=== PATIENT | male | born 1995 | race Caucasian/White ===

== ENCOUNTER 2017-02-17 09:22 | Emergency (ER) | payer SELFPAY ==
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
[2017-02-17] MEDS ORDERED: Ondansetron 4 MG/2 ML SDV IVPUSH ONE (09:43)
[2017-02-17] MEDS ORDERED: Sodium Chloride 0.9% 1,000 ML IV ONE (09:43)
[2017-02-17] MEDS ORDERED: Ketorolac 30 MG/ML SDV IVPUSH ONE (09:44)
[2017-02-17 10:25] LABS: CHLORIDE,CL 105 mmol/L (98-110); SODIUM,NA 137 mmol/L (136-146)
--- NOTE | 2017-02-17 11:01 | CR ---
EXAMINATION: Two-view chest (PA and Lateral views). HISTORY: Shortness of breath. FINDINGS: The trachea is midline. The cardiomediastinal silhouette is within normal limits. No pulmonary infil trates, effusions or pneumothorax. Osseous structures appear unremarkable. IMPRESSION: No acute cardiopulmonary process.
== END 2017-02-17 12:00 | disposition home or self-care (01) ==
LOC: MW.ED 09:22
DX: R10.11 Right upper quadrant pain (principal); G89.29 Other chronic pain
CPT/HCPCS: 36415; 71020; 80053; 83690; 85025; 96361; 96374; 96375; 99284; J1885; J2405; J7040

== ENCOUNTER 2021-07-23 13:25 | Emergency (ER) | payer SELFPAY ==
--- NOTE | 2021-07-23 13:36 | PCM.EKG ---
#1 Interpretation Time: 13:35 EKG Interpretation Comments: EKG: NSR, nonspecific ST/T changes, Rate -85
[2021-07-23] MEDS ORDERED: Ibuprofen 600 MG Tab PO ONE (13:49)
--- NOTE | 2021-07-23 13:52 | EDM.PDOC ---
ED HPI GENERAL MEDICAL PROBLEM - General Chief Complaint: Chest Pain Stated Complaint: SOB Time Seen by Provider: 07/23/21 13:41 Source of Information: Reports: Patient - History of Present Illness INITIAL COMMENTS - FREE TEXT/NARRATIVE: 25-year-old male presents complaining of chest pain. He states that he just finished his Covid quarantine. And the chest pain started on Thursday. He states it is a sharp pain that is worse when he breathes, moves from side to side or tries to pick something up. No direct trauma. He continues with his cough from Covid with productive sputum. Plus or minus shortness of breath. He states he is too anxious and nervous to get the Covid vaccine. Patient denies history of blood clots. He states his aunt had a blood clot but no immediate relative with blood clots. No leg swelling. No recent travel or injury or cancer or surgery. Patient does smoke cigarettes. Chest Pain Score (Numeric/FACES): 8 - Related Data Allergies Allergy/AdvReac Type Severity Reaction Status Date / Time No Known Allergies Allergy Verified 07/23/21 13:42 Home Meds: Home Meds . [No Known Home Meds] 07/23/21 [History] Past Medical History - Past Health History Medical/Surgical History: Denies Medical/Surgical History Gastrointestinal History: Reports: Other (See Below) Other Gastrointestinal History: hx of chronic stomach pain - Infectious Disease History Infectious Disease History: Reports: Chicken Pox Social & Family History - Family History Family Medical History: No Pertinent Family History - Tobacco Use Second Hand Smoke Exposure: No - Caffeine Use Caffeine Use: Reports: None - Recreational Drug Use Recreational Drug Use: No ED ROS GENERAL - Review of Systems Review Of Systems: See Below ED EXAM, GENERAL - Physical Exam Exam: See Below Free Text/Narrative:: CONSTITUTIONAL: well appearing in no acute distress SKIN: Warm, dry, and intact without rash HENT: Normocephalic, atraumatic, PULMONARY: clear to ausculation bilaterally. No rales, rhonchi, wheezing CARDIOVASCULAR: regular rate, No murmur, rubs, or gallops GASTROINTESTINAL: soft, nondistended, nontender NEUROLOGIC: normal speech, motor and sensory function grossly intact MUSCULOSKELETAL: no gross deformities, atraumatic PSYCHIATRIC: Anxious affect but otherwise unremarkable Course - Vital Signs Text/Narrative:: Differential diagnosis: Pneumonia, pneumothorax, musculoskeletal pain, gastritis, ACS, pericarditis, PE, other She presents as outlined above. Patient is at low risk for PE and has negative D-dimer. There is a component that is worse with movement and patient can do a trial of NSAIDs. EKG and laboratory work-up otherwise effectively unremarkable. Supportive treat with return precautions and PCP follow-up. Last Recorded V/S: Last Vital Signs Temp 36.4 C 07/23/21 14:10 Pulse 90 07/23/21 13:38 Resp 20 07/23/21 13:38 BP 128/81 07/23/21 13:38 Pulse Ox 97 07/23/21 13:38 - Orders/Labs/Meds Labs: Laboratory Tests 07/23/21 07/23/21 07/23/21 Range/Units 13:32 13:32 13:32 WBC 4.96 (4.0-11.0) K/uL RBC 4.81 (4.50-5.90) M/uL Hgb 15.2 (13.0-17.0) g/dL Hct 42.4 (38.0-50.0) % MCV 88.1 (80.0-98.0) fL MCH 31.6 (27.0-32.0) pg MCHC 35.8 (31.0-37.0) g/dL RDW Std Deviation 39.8 (28.0-62.0) fl RDW Coeff of Stephan 12 (11.0-15.0) % Plt Count 285 (150-400) K/uL MPV 10.00 (7.40-12.00) fL Neut % (Auto) 41.5 L (48.0-80.0) % Lymph % (Auto) 46.4 H (16.0-40.0) % [place] % (Auto) 10.5 (0.0-15.0) % Eos % (Auto) 1.4 (0.0-7.0) % Baso % (Auto) 0.2 (0.0-1.5) % Neut # (Auto) 2.1 (1.4-5.7) K/uL Lymph # (Auto) 2.3 (0.6-2.4) K/uL [place] # (Auto) 0.5 (0.0-0.8) K/uL Eos # (Auto) 0.1 (0.0-0.7) K/uL Baso # (Auto) 0.0 (0.0-0.1) K/uL Nucleated RBC % 0.0 /100WBC Nucleated RBCs # 0 K/uL D-Dimer, Quantitative < 0.19 (0.0-0.50) mg/L FEU Sodium 140 (136-148) mmol/L Potassium 3.6 (3.5-5.1) mmol/L Chloride 102 (98-107) mmol/L Carbon Dioxide 27.6 (21.0-32.0) mmol/L BUN 12 (7.0-18.0) mg/dL Creatinine 0.8 (0.8-1.3) mg/dL Est Cr Clr Drug Dosing 115.10 mL/min Estimated GFR (MDRD) > 60.0 ml/min Glucose 103 (74-106) mg/dL Calcium 9.1 (8.5-10.1) mg/dL Total Bilirubin 0.6 (0.2-1.0) mg/dL AST 25 (15-37) IU/L ALT 27 (14-63) IU/L Alkaline Phosphatase 112 (46-116) U/L Troponin I < 0.050 (0.000-0.056) ng/mL Total Protein 8.5 H (6.4-8.2) g/dL Albumin 4.2 (3.4-5.0) g/dL Globulin 4.3 H (2.6-4.0) g/dL Albumin/Globulin Ratio 1.0 (0.9-1.6) Meds: Medications Discontinued Medications Generic Name Dose Route Start Last Admin Trade Name Noemy PRN Reason Stop Dose Admin Ibuprofen 600 mg 07/23/21 13:49 07/23/21 14:10 Ibuprofen 600 Mg Tab PO 07/23/21 13:50 600 mg ONETIME ONE Administration Departure - Departure Time of Disposition: 14:53 Disposition: Home, Self-Care 01 Condition: Good Clinical Impression: Chest pain - Discharge Information Instructions: Nonspecific Chest Pain, Adult Forms: ED Department Discharge Additional Instructions: Take ibuprofen 600 mg 3 times a day for a week. Return for any significant shortness of breath or worsening pain or change or worsening condition. Follow- up with primary care doctor this next week. The following information is given to patients seen in the emergency department who are being discharged to home. This information is to outline your options for follow-up care. We provide all patients seen in our emergency department with a follow-up referral. The need for follow-up, as well as the timing and circumstances, are variable depending upon the specifics of your emergency department visit. If you don't have a primary care physician on staff, we will provide you with a referral. We always advise you to contact your personal physician following an emergency department visit to inform them of the circumstance of the visit and for follow-up with them and/or the need for any referrals to a consulting specialist. The emergency department will also refer you to a specialist when appropriate. This referral assures that you have the opportunity for follow-up care with a specialist. All of these measure are taken in an effort to provide you with optimal care, which includes your follow-up. Primary care clinics in the area: [facility] - Primary Care [address] [place] [address] [place] [address] Under all circumstances we always encourage you to contact your private physician who remains a resource for coordinating your care. When calling for follow-up care, please make the office aware that this follow-up is from your recent emergency room visit. If for any reason you are refused follow-up, please contact the [facility] Emergency Department at and asked to speak to the emergency department charge nurse. Sepsis Event Note (ED) - Evaluation Sepsis Screening Result: No Definite Risk - Focused Exam Vital Signs: Vital Signs Temp Temp Pulse Resp BP Pulse Ox 07/23/21 14:10 36.4 C 07/23/21 13:38 37.7 C 90 20 128/81 97
[2021-07-23 14:12] LABS: BLOOD UREA NITROGEN,BUN 12 mg/dL (7.0-18.0); CARBON DIOXIDE,CO2 27.6 mmol/L (21.0-32.0); CHLORIDE,CL 102 mmol/L (98-107); GLUCOSE RANDOM 103 mg/dL (74-106); POTASSIUM,K 3.6 mmol/L (3.5-5.1); SODIUM,NA 140 mmol/L (136-148)
--- NOTE | 2021-07-23 14:49 | CR ---
Indication: Chest Pain Comparison: Two view chest February 17, 2017 Technique: Single AP view chest Findings: The lungs are well expanded. There is no focal consolidation, effusion, or pneumothorax. The cardiomediastinal silhouette is within normal limits. The bony thorax is grossly intact. Impression: No acute cardiopulmonary abnormality. Dictated by Twan Bone MD @ 07/23/2021 2:47:02 PM (Electronically Signed)
[2021-07-23 15:21] VITALS: BP 131/87; PULSE 88
== END 2021-07-23 15:10 | disposition home or self-care (01) ==
LOC: MW.ED 13:25 → MERGE 13:25 → MW.ED 15:10
DX: R07.9 Chest pain, unspecified (principal); F17.210 Nicotine dependence, cigarettes, uncomplicated
CPT/HCPCS: 36415; 71045; 80053; 84484; 85025; 85379; 93005; 99285; A9270